=== PATIENT | male | born 1960 | race Caucasian/White ===

== ENCOUNTER 2017-04-15 17:55 | Emergency (ER) | payer MEDICARE, OTHER ==
[~2017-04-15] VITALS: Ht 170.2 cm; Wt 77.1 kg
--- NOTE | ~2017-04-15 | EKG ---
PATIENT: JESSICA MALONEY UNIT #: [id number] Ventricular Rate: 74 BPM Atrial Rate: 74 BPM P-R Interval: 136 ms QRS Duration: 84 ms Q-T Interval: 380 ms QTC Calculation(Bezet): 421 ms P [place]: 58 degrees Calculated R [place]: 85 degrees Calculated T [place]: 76 degrees Diagnosis Line: Normal sinus rhythm Diagnosis Line: Normal ECG Diagnosis Line: No previous ECGs available Diagnosis Line: Confirmed by YESENIA TOVAR MD ([id number]) on Diagnosis Line: 04/16/2017 5:41:11 PM INTERPRETING MD: GUY WONG
--- NOTE | ~2017-04-15 | CR181 ---
[facility] A Service of [facility] & [facility] RADIOLOGY TEXT RESULTS PATIENT: JESSICA MALONEY LOCATION: [facility] : 62 UNIT #: [id number] AGE: [address]: Bertrand Wall MD SEX: M ORDER DR: [id number] [facility] [address] [place], [place] [address] [id number] E MR#: [id number] Acc #: [id number] NAME: JESSICA MALONEY : 1960 SEX: M STUDY DATE/TIME: 04/15/2017 19:00 UNIT: [facility] ROOM: STUDY DESCRIPTION: CR Lumbar Spine 2 or 3 Views Attending Physician: Obed Wall M.D. Ordering Physician: Ed Nilton Good M.D. Primary Care Physician: Jaskaran Ybarra D.O. MEDICAL IMAGING REPORT This report is preliminary unless electronic signature is present EXAM Lumbar spine, 3 views. HISTORY Back pain after fall today. FINDINGS Three views of the lumbar spine demonstrate satisfactory lumbar alignment. Mild hypertrophic changes upper and lower lumbar spine. No fracture or disc space narrowing or subluxation. IMPRESSION No acute findings in the lumbar spine. Mild hypertrophic changes in upper and lower lumbar spine. Dictated by... Bharath Hall M.D. THIS IS AN ELECTRONICALLY VERIFIED REPORT Bharath Hall M.D. at 04/16/2017 6:08 PM JAKE/jared TD: 04/16/2017 00:21 JOB #: [id number] MEDICAL IMAGING REPORT Page 1 of 1 COPY
--- NOTE | ~2017-04-15 | CT71 ---
[facility] A Service of [facility] & [facility] RADIOLOGY TEXT RESULTS PATIENT: JESSICA MALONEY LOCATION: [facility] : 62 UNIT #: [id number] AGE: [address]: Bertrand Wall MD SEX: M ORDER DR: [id number] [facility] [address] [place], [place] [address] [id number] E MR#: [id number] Acc #: [id number] NAME: JESSICA MALONEY : 1960 SEX: M STUDY DATE/TIME: 04/15/2017 19:22 UNIT: [facility] ROOM: STUDY DESCRIPTION: CT Head Wo Contrast Attending Physician: Bertrand Wall Ordering Physician: Ed Doctor [id number] [facility] Primary Care Physician: Jaskaran Ybarra D.O. MEDICAL IMAGING REPORT This report is preliminary unless electronic signature is present EXAM CT brain without contrast HISTORY Fell and hit head and loss of consciousness today. Posterior head pain. TECHNIQUE This CT exam was performed with one or more of the following radiation dose reduction techniques: automatic control, adjustment of mA and/or kV according to patient size, and iterative reconstruction. FINDINGS CT brain without contrast demonstrates no intracranial hemorrhage, mass or edema. No midline shift or ventricular dilatation or extraaxial fluid collection. Developmental aplasia of the corpus callosum. IMPRESSION No acute findings. 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 Dictated by... Bharath Hall M.D. THIS IS AN ELECTRONICALLY VERIFIED REPORT Bharath Hall M.D. at 04/16/2017 6:08 PM DFL/jay TD: 04/16/2017 00:30 JOB #: [id number] MEDICAL IMAGING REPORT Page 1 of 1 COPY
[2017-04-15 18:55] LABS: BASOPHIL# 0.1 X10e3 (0-0.3); BASOPHIL% 0.5 % (0-2.5); EOSINOPHIL# 0.1 X10e3 (0-0.7); EOSINOPHIL% 0.6 % (0.0-7.0); HEMATOCRIT 45.5 % (38.0-50.0); HEMOGLOBIN 14.9 gm/dL (13.0-16.0); LYMPHOCYTE# 2.2 X10e3 (1.0-3.5); LYMPHOCYTE% 17.5 % (17.0-45.0); MEAN CELL VOLUME 84.3 FL (83-96); MEAN CORPUSCULAR HEMOGLOBIN 27.5 PG (28-34); MEAN CORPUSCULAR HGB CONC 32.7 g/dL (30-36); MEAN PLATELET VOLUME 10.8 FL (6.5-11.5); MONOCYTE# 0.8 X10e3 (0-1.0); MONOCYTE% 6.7 % (3.0-12.0); NEUTROPHIL# 9.4 X10e3 (1.5-7.1); NEUTROPHIL% 74.7 % (40-75); PLATELET COUNT 131 X10e3 (140-420); RED CELL DISTRIBUTION WIDTH 13.1 % (11.0-15.5); WHITE BLOOD COUNT 12.6 X10e3 (4.0-10.5)
[2017-04-15 18:58] LABS: DIFF IND NO
[2017-04-15 19:20] LABS: BUN/CREATININE RATIO 16.66; CALCIUM SERUM 8.7 mg/dL (8.4-10.2); CREATININE SERUM 0.9 mg/dL (0.6-1.4); GLOM FILT RATE Estimated 95.1 mL/min (>60); POTASSIUM 3.8 mmol/L (3.5-5.1)
[2017-04-15 19:33] LABS: POC - CKMB 1.1 ng/mL (0.0-7.9); POC - TROPONIN <0.05 ng/mL (<=0.05)
[2017-04-15 20:49] LABS: POC - CKMB <1.0 ng/mL (0.0-7.9); POC - TROPONIN <0.05 ng/mL (<=0.05)
== END 2017-04-15 21:29 | disposition home or self-care (01) ==
LOC: CED 17:55
PROVIDERS: Emergency Medicine
DX: R55 Syncope and collapse (principal); I10 Essential (primary) hypertension
CPT/HCPCS: 36415; 70450; 72100; 80048; 82553; 84484; 85025; 93005; 99285